=== PATIENT | male | born 1970 | race Asian ===

== ENCOUNTER 2022-10-15 07:33 | Emergency (ER) | payer OTHER ==
[2022-10-15 07:44] VITALS: BP 168/91; PULSE 55; RESP 18; TEMP 97.3; BMI 22.6
[2022-10-15] MEDS ORDERED: KETOROLAC TROMETHAMINE 15 MG/ML VIAL IVPUSH ONE (08:52)
[2022-10-15] MEDS ORDERED: KETOROLAC TROMETHAMINE 15 MG/ML VIAL ONE (09:05)
[2022-10-15 09:28] LABS: EPI CELLS 2 /uL (0-25.1); HYALINE CASTS 1 /uL (0-3.1); URINE APPEARANCE TURBID; URINE BACTERIA 7 /uL (0-1359); URINE BILIRUBIN NEGATIVE (NEGATIVE); URINE COLOR YELLOW; URINE GLUCOSE (UA) 2+ (NEGATIVE); URINE KETONE NEGATIVE (NEGATIVE); URINE LEUK ESTERASE NEGATIVE (NEGATIVE); URINE NITRITE NEGATIVE (NEGATIVE); URINE PROTEIN 3+ (NEGATIVE); URINE UROBILINOGEN 0.2 mg/dL (0.2-1.0); URINE WBC 6 /uL (0-25.8)
[2022-10-15 09:28] LABS: BASO % 0.2 % (0-2.0); HEMATOCRIT 46.1 % (35.4-49); HEMOGLOBIN 15.1 GM/dL (11.7-16.9); LYMPH % 6.5 % (8-40); MCH 28.8 pg (25.7-33.7); MCHC 32.8 g/dl (32.0-35.9); MEAN CELL VOLUME 87.9 fl (80-96); MEAN PLT VOLUME 7.7 fl (7.5-11.1); MONO % 2.8 % (3.8-10.2); NEUT % 90.5 % (42.8-82.8); PLATELET COUNT 187 10^3/uL (134-434); RBC 5.24 M/mm3 (4.00-5.60); RDW 13.2 % (11.9-15.9); WHITE BLOOD COUNT 11.9 K/mm3 (4.0-10.0)
[2022-10-15 09:48] LABS: CHLORIDE 106 mmol/L (98-107); SODIUM 140 mmol/L (136-145)
[2022-10-15 09:50] LABS: ALBUMIN 4.2 g/dl (3.4-5.0); BLOOD UREA NITROGEN 18.1 mg/dL (7-18); CALCIUM 9.7 mg/dL (8.5-10.1); CO2 27 mmol/L (21-32); GLUCOSE,RANDOM 161 mg/dL (74-106)
[2022-10-15 09:53] LABS: CREATININE 1.3 mg/dL (0.55-1.3); SGOT/AST 62 U/L (15-37); SGPT/ALT 80 U/L (13-61)
[2022-10-15 09:54] LABS: TOT PROT 7.8 g/dl (6.4-8.2)
[2022-10-15 09:56] LABS: ALK PHOS 81 U/L (45-117)
[2022-10-15 09:59] LABS: ANION GAP 7 MMOL/L (8-16)
[2022-10-15 10:21] LABS: URINE RBC 199 /uL (0-23.9)
[2022-10-15] MEDS ORDERED: ACETAMINOPHEN 1000 MG/100 ML BAG IVPB ONE (10:25)
[2022-10-15] MEDS ORDERED: ACETAMINOPHEN INJECTION 100 ML IVPB ONE (10:27)
[2022-10-15] MEDS ORDERED: SODIUM CHLORIDE 0.9% 500 ML INFUS.BAG IV ONE (10:47)
[2022-10-15 10:54] LABS: ALBUMIN 3.7 g/dl (3.4-5.0); BLOOD UREA NITROGEN 17.8 mg/dL (7-18)
[2022-10-15 10:57] LABS: CREATININE 1.3 mg/dL (0.55-1.3)
[2022-10-15 10:59] LABS: BILIRUBIN,TOTAL 1.2 mg/dL (0.2-1); TOT PROT 6.7 g/dl (6.4-8.2)
[2022-10-15] MEDS ORDERED: oxyCODONE HCL 5 MG TABLET PO ONE (11:35)
[2022-10-15] MEDS ORDERED: oxyCODONE HCL 5 MG TABLET ONE (11:44)
== END 2022-10-15 13:17 | disposition home or self-care (01) ==
LOC: JER 07:33
PROC: 3E033GC Introduction of Other Therapeutic Substance into Peripheral Vein, Percutaneous Approach (ICD-10-PCS; principal; 2022-10-15)
DX: N20.0 Calculus of kidney (principal)
CPT/HCPCS: 36415; 74177-TC; 80053; 81003; 85025; 87086; 99285-25; Q9967